=== PATIENT | male | born 1985 | race Caucasian/White ===

== ENCOUNTER 2017-11-25 00:08 | Emergency (ER) | payer SELFPAY ==
[~2017-11-25] VITALS: Ht 193 cm; Wt 86.4 kg
[2017-11-25 00:13] VITALS: BP 140/84; PULSE 65; TEMP 98.2
[2017-11-25] MEDS ORDERED: NORCO 325 MG-51 TAB PO (00:47)
[2017-11-25] MEDS ORDERED: AMOXICILLIN 8751 TAB PO (00:47)
== END 2017-11-25 01:05 | disposition home or self-care (01) ==
LOC: COL.ER 00:08
DX: K02.9 Dental caries, unspecified (principal); F17.210 Nicotine dependence, cigarettes, uncomplicated